=== PATIENT | female | born 1995 | race Caucasian/White ===

== ENCOUNTER 2021-11-11 09:26 | Day surgery (SDC) | payer OTHER, SELFPAY ==
[2021-11-11] VITALS (7 sets, daily range): BP systolic 112–131; BP diastolic 69–98; PULSE 60–103; RESP 16; TEMP 36.4–37.1; O2SAT 99–100; BMI 25.8
[2021-11-11] MEDS: LACTATED RINGERS 1000 ML 1,000 ML 100 ML IV (10:00)
[2021-11-11] MEDS: SODIUM CHLORIDE 0.9 % (FLUSH) 10 ML SYRINGE IVF (10:02)
[2021-11-11] MEDS: ETHYL CHLORIDE 1 APPLICATION 1 APPLIC TOPICAL (10:03)
[2021-11-11] MEDS: BUPIVACAINE 0.25% 30 ML 20 ML INJECTION (11:29)
--- NOTE | 2021-11-11 11:56 | W.ANESCHARGE ---
Anesthesia Charges Start Date/Time Anesthesia Start Date: 11/11/21 Anesthesia Start Time: 11:10 Stop Date/Time Anesthesia Stop Date: 11/11/21 Anesthesia Stop Time: 11:58 Summary Emergency: No
--- NOTE | 2021-11-11 11:59 | W.PM.GYNPROC ---
Procedure Note Date Seen: 11/11/21 Procedure Details: PREOPERATIVE DIAGNOSIS: Missed /early intrauterine demise at 8 6/7 weeks. POSTOPERATIVE DIAGNOSIS: Missed /early intrauterine demise at 8 6/7 weeks.. PROCEDURE: Suction curettage. SURGEON: Miya. ANESTHESIA: Monitored anesthesia care and paracervical block. COMPLICATIONS: None. ESTIMATED BLOOD LOSS: 15 mL. FINDINGS: Moderate amount of products of conception. PROCEDURE NOTE: After obtaining informed consent, the patient was taken to the operating room where she received monitored anesthesia care. She was prepared and draped in the normal, sterile fashion in the dorsal lithotomy position. An examination was performed under anesthesia which demonstrated a normal sized retroverted uterus. An open-sided bivalve speculum was placed into the vagina and the cervix easily visualized. The anterior lip of the cervix was grasped with a single-tooth tenaculum for traction. A paracervical block was administered using a total of 20 mL of 0.25% Marcaine, plain. A sound was gently inserted through the cervical os into the uterus to the level of the fundus. Sound length was 11 cm. The cervix was gently dilated using Hegar dilators to a #10 dilator. A 9 mm rigid, curved suction cannula was advanced through the cervical os into the uterine cavity. Gentle suction was applied, and the uterine lining gently curetted. A moderate amount of products of conception and blood was removed. The suction cannula was removed. There was additional tissue then visualized at the os that was grasped with a ring forceps and removed, to be included with the suctioned specimen. The uterine lining was gently explored using a sharp curette, and a gritty feel was felt throughout. One final pass was made with the suction cannula, no further tissue was recovered. All instruments were then removed. The patient tolerated the procedure well. Sponge, lap, and needle counts were reported as correct x2. The patient was taken to the recovery room awake and in stable condition. PATHOLOGY SPECIMEN(S): Products of conception for routine path.
--- NOTE | 2021-11-11 12:15 | W.ANESCHARGE ---
Anesthesia Charges Start Date/Time Anesthesia Start Date: 11/11/21 Anesthesia Start Time: 11:10 Stop Date/Time Anesthesia Stop Date: 11/11/21 Anesthesia Stop Time: 11:58 Summary Emergency: No
== END 2021-11-11 13:30 | disposition home or self-care (01) ==
PROVIDERS: PCP Family Medicine; Visit Provider Obstetrics & Gynecology
PROC: (CPT 59820; principal; 2021-11-11 10:45)
DX: O02.1 Missed abortion (principal); Z3A.08 8 weeks gestation of pregnancy
CPT/HCPCS: 59820; 00940; 01965; 36415; 86850; 86900; 86901; 88182; 88305; 88342; J1100; J1885; J2250; J2405; J2704; J3010; J3490; J7120

== ENCOUNTER 2021-11-24 15:57 | Outpatient (CLI) | payer OTHER, SELFPAY ==
[2021-11-25 14:36] LABS: HCG Quantitative* 21.44 mIU/mL
[2021-11-27 00:48] LABS: Anti-Nuclear Ab(ANA)IgG ELISA None Detected (None Detected)
== END 2021-11-24 15:58 | disposition home or self-care (01) ==
PROVIDERS: PCP Family Medicine; Visit Provider Obstetrics & Gynecology
DX: N96 Recurrent pregnancy loss
CPT/HCPCS: 84702; 84703; 86039

== ENCOUNTER 2022-11-06 14:52 | Outpatient (CLI) | payer OTHER, SELFPAY ==
[2022-11-06 15:03] VITALS: PULSE 95; O2SAT 99
[2022-11-06 15:04] VITALS: BP 127/89; PULSE 90
[2022-11-06 15:05] VITALS: TEMP 36.6
[2022-11-06 15:39] LABS: Appearance Urine Clear (Clear); Bilirubin Urine Negative (Negative); Blood Urine Negative (Negative); Color Urine Yellow (Yellow); Glucose Urine Negative (Negative); Ketones Urine 3+ (Negative); Leukocyte Esterase Urine Negative (Negative); Nitrite Urine Negative (Negative); Protein Urine Negative (Negative); Specific Gravity Urine <= 1.005 (1.000-1.030); Urobilinogen Urine 0.2 (0.2-1.0)
[2022-11-06 16:16] LABS: Yeast No Yeast Seen (None Seen)
[2022-11-06 16:17] LABS: Clue Cells No Clue Cells Seen (None Seen); Trichomonas No Trichomonas Seen (None Seen)
--- NOTE | 2022-11-06 16:54 | PM.OBHPAP1 ---
OB - H&P; HPI Antepartum History of Present Illness Time Seen by Provider: 16:55 Date Seen: 11/06/22 Chief complaint: Maternity Narrative: Felisa Kenney is a 27 year old female who presents with contractions at 34w2d. She is a . Patient started carson more the last few days. However, today at work she had more cramping. She called triage and was asked to come in for evaluation. On the way to [place] from [place] where she works she had painful contractions she had to breathe through. She has had urgency and frequency the last few weeks. She denies dysuria. She has had good movement. She has been hydrating well. She has no concern for headache, vision changes, RUQ pain. She has had no gushes of fluids. She works in labor and deliver and could palpate her contractions on the way here and felt pelvic pressure. OB course was complicated by gestational diabetes on insulin. She takes 10 units of NPH at bedtime. History of Present Dating criteria: based on LMP (consistent with 6 week ultrasound) care: good care Ultrasounds: normal 1st trimester US complications: gestational diabetes Medical complications: none Labs Blood type: A (-) negative Rubella: immune RPR/VDLR: nonreactive GBS status: unknown (did collect swab today) HBsAG: negative Review of Systems Status of ROS: Reports: 10 or more systems reviewed and unremarkable except as noted in History and below Meds Home Medications and Allergies Home Medications Medication Instructions Recorded Confirmed Type No Known Home Medications 03/14/22 03/14/22 History Allergies Allergy/AdvReac Type Severity Reaction Status Date / Time sulfamethoxazole Allergy Intermediate rash, hives Verified 03/14/22 09:58 trimethoprim Allergy Intermediate rash, hives Verified 03/14/22 09:58 amoxicillin Allergy Rash Verified 03/14/22 09:58 Sulfa drugs Allergy Intermediate rash, hives Uncoded 03/14/22 09:58 OB - H&P: Exam Physical Exam: Vital signs: Temp Pulse BP Pulse Ox 98 F 90 127/89 99 11/06/22 15:05 11/06/22 15:04 11/06/22 15:04 11/06/22 15:03 Constitutional: Constitutional: no acute distress Routine HEENT Exam: Head: Present atraumatic and normal inspection Routine Neck Exam: Neck: Present full ROM Detailed Neck Exam: Thyroids: Thyroid: Present normal Routine Respiratory Exam: Respiratory: Present CTA bilaterally Routine Cardiovascular Exam: Cardiovascular: RRR, S1 and S2 Routine Exam: Perineum Description: Normal Detailed Labor and Delivery Exam: Patient Gravid: Yes Dilation (cm): 1 Effacement (%): 0 Cervix position: posterior Consistency: firm Contraction frequency (min): 3 Tachysystole: No Contraction intensity: Moderate Fetus (Single): Amniotic Membrane Fluid Description: Clear Heart Rate Baseline: 125 Monitor Accelerations: Present Monitor Decelerations: None Chcf Variability: Moderate (6-25) Routine Back/Spine/Pelvis Exam: Back/Spine: full ROM Routine Neurological Exam: Present alert and oriented X3 Routine Psychiatric Exam: Present normal affect and normal thought process OB - Results Labs Labs: Urine 11/06/22 Range/Units 14:57 Urine Color Yellow (Yellow) Urine Appearance Clear (Clear) Urine pH 6.0 (5.0-8.5) Ur Specific [place] <= 1.005 (1.000-1.030) Urine Protein Negative (Negative) Urine Glucose (UA) Negative (Negative) OB - A/P Antepartum Assessment and Plan (1) labor: Status: Acute Plan Patient is a at 34 weeks who presented with contractions. Was given IV fluids, nifedipine. UA and wet prep normal. Nifedipine seemed to decrease intensity of contractions for a bit, but they picked up again. Cervix changed from 0 to 1 cm. Given we deliver at >35 weeks gestation, we elected to transfer to higher level of care. - Transfer to [place] (accepted by Dr. Seo) - GBS pending - Deferred betamethasone given gestational diabetes.
[2022-11-06] MEDS: NIFEdipine 10 MG CAPSULE PO (16:56)
[2022-11-06] MEDS: LACTATED RINGERS 1000 ML 1,000 ML IV (17:00)
[2022-11-06 17:29] VITALS: BP 115/70; PULSE 86
[2022-11-06 19:26] VITALS: BP 126/78; PULSE 86; PULSE 94; O2SAT 98
--- NOTE | 2022-11-06 21:04 | PC.OBNST ---
NST Note NST Note Start: 11/06/22 14:56 Freq: ONCE Status: Active Protocol: Document 11/06/22 19:20 PARVIZ (Rec: 11/06/22 21:04 PARVIZ [id number]) NST Note 2 Para (# of births) 1 EDC 12/16/22 Gestational Age In Weeks & Days 34 Weeks & 2 Days High Risk Factors Diabetes - Preexisting Type I Diet Controlled Patient Presented with Complaint(s) of Contractions/cramping Reactive Yes Appropriate for Gestational Age Yes LOGAN Reis RNC Date 11/06/22 Reactive Yes Appropriate for Gestational Age Yes LOGAN Chau RN Date 11/06/22 OB NST charge Yes Complete NST Note via Write Note Yes The provider's electronic signature indicates the NST is reactive/appropriate for gestational age. *Note to provider: If an addendum is required, open the patient's chart and click on the note under the Nurse/Allied Health tab.
[2022-11-07 18:56] LABS: Strep B DNA Probe NEGATIVE (Negative)
[2022-11-07 22:12] LABS: Strep B Pen/Amox Allergy No
== END 2022-11-06 19:30 | disposition home or self-care (01) ==
LOC: OB OUT 14:52 → OB 14:53
PROVIDERS: PCP Family Medicine; Visit Provider Family Medicine
DX: O24.419 Gestational diabetes mellitus in pregnancy, unspecified control (principal); Z3A.34 34 weeks gestation of pregnancy
CPT/HCPCS: 59025; 81003; 87081; 87086; 87210; 87653; 99199; 99213; A0425; A0428; A9270; J7120

== ENCOUNTER 2022-11-06 19:25 | Outpatient (CLI) | payer OTHER, SELFPAY | END 2022-11-06 19:26 | disposition home or self-care (01) | LOC: AMB 11-16 18:31 | PROVIDERS: PCP Family Medicine; Visit Provider Emergency Medicine Emergency Medical Services | DX: O47.03 False labor before 37 completed weeks of gestation, third trimester (principal); Z3A.34 34 weeks gestation of pregnancy | CPT/HCPCS: A0425; A0428 ==

== ENCOUNTER 2022-12-08 16:56 | Inpatient (IN) | payer OTHER, SELFPAY ==
[2022-12-08] VITALS (8 sets, daily range): BP systolic 116–137; BP diastolic 74–88; PULSE 65–83; TEMP 36.6–37.1; O2SAT 98–99; BMI 30.3
--- NOTE | 2022-12-08 18:16 | P.OBHP_ITS ---
OB - H&P: HPI Labor/Induction History of Present Illness Date Seen: 12/08/22 Chief Complaint: The patient is a 27 year old 3 para 0020 at 38+6 weeks gestation by LMP and confirmed with 6 week US, who presents for induction for IDGDM. Chief complaint: Maternity : 3 Para: 0 Narrative: Felisa Kenney is a 27 year old at 38+6 weeks here for cervical ripening followed by induction for IDGDM. Her has also been complicated by covid, she has been on ASA throughout . She is currently on 10 units NPH at HS and 6 units novolog with meals. Her weekly BPPs have been reassuring and EFW 3083g ( 67%) at 37 weeks. She reports some mild contractions over the last few weeks, these seem positional. No LOF. Baby has been active. History of Present Dating criteria: based on LMP care: good care Ultrasounds: normal 1st trimester US and normal mid trimester US complications: gestational diabetes (on insulin, well controlled. ) Labs Blood type: A (-) negative Rubella: immune RPR/VDLR: nonreactive GBS status: negative HBsAG: negative Review of Systems Status of ROS: Reports: 10 or more systems reviewed and unremarkable except as noted in History and below Meds Home Medications and Allergies Home Medications Medication Instructions Recorded Confirmed Type insulin NPH isoph U-100 human 100 unit subcut 12/08/22 History unit/mL (3 mL) subcutaneous pen (Novolin N FlexPen) insulin lispro 100 unit/mL subcut 12/08/22 History subcutaneous pen Allergies Allergy/AdvReac Type Severity Reaction Status Date / Time sulfamethoxazole Allergy Intermediate rash, hives Verified 03/14/22 09:58 trimethoprim Allergy Intermediate rash, hives Verified 03/14/22 09:58 amoxicillin Allergy Rash Verified 03/14/22 09:58 OB - H&P: Exam Physical Exam: Vital signs: Pulse BP 83 116/74 12/08/22 17:14 12/08/22 17:14 Constitutional: Constitutional: no acute distress Routine HEENT Exam: Head: Present atraumatic Eye: Present EOMI and PERRL ENT: Present mucous membranes moist Routine Neck Exam: Neck: Present full ROM Routine Respiratory Exam: Respiratory: Present CTA bilaterally Routine Cardiovascular Exam: Cardiovascular: RRR Comments: no murmur Detailed Labor and Delivery Exam: Patient Gravid: Yes Dilation (cm): 1 Effacement (%): 70 Cervix position: posterior Consistency: soft Cervical ripeness score: 6 Contraction frequency (min): 7 Contraction intensity: Mild Fetus (Single): Station: -2 Amniotic Membrane Status: intact Heart Rate Baseline: 125 Monitor Accelerations: Present Monitor Decelerations: None Detention Variability: Moderate (6-25) Routine Extremities Exam: Comments: no swelling or redness Routine Back/Spine/Pelvis Exam: Back/Spine: full ROM Routine Skin Exam: Present intact Routine Neurological Exam: Present alert, oriented X3 and CN II-XII intact Routine Psychiatric Exam: Present normal affect OB - Problem Based A/P Additional Plan (1) Term : Status: Acute (2) Gestational diabetes requiring insulin: Status: Acute Plan Cook catheter placed with 60 mL in both intrauterine and intravaginal balloons. Low dose pitocin after midnight NPH per usual regimen tonight. Once in active labor will transition to protocol. AROM and/or continued pitocin in AM. Anticipate Delivery/Labor/Induction Plan Induction method: Intracervical balloon catheter
[2022-12-08 19:12] LABS: Basophils Percent Auto 0.2 % (0.0-3.0); Eosinophils Percent Auto 0.3 % (0.0-7.0); Hematocrit 40.8 % (33.0-51.0); Immature Granulocytes Pct Auto 0.2 %; Lymphocytes Percent Auto 22.7 % (20-44); Mean Corpuscular HGB Conc 34 gm/dL (32-36); Mean Corpuscular Hemoglobin 32 pg (26-34); Mean Corpuscular Volume 94 fL (80-100); Monocytes Percent Auto 7.4 % (0.0-11.0); Neutrophils Percent Auto 69.2 % (42.0-72.0); Platelet Count* 199 K/uL (140-440); RDW Coefficient of Variation % 12.5 % (11.5-15.5); Red Blood Count 4.33 m/uL (4.00-5.20); White Blood Count* 11.42 K/uL (4.50-11.00)
[2022-12-08 19:15] LABS: Slide Review Reflex No
[2022-12-08] MEDS: LACTATED RINGERS 1000 ML 1,000 ML 125 ML IV (20:52)
[2022-12-08] MEDS: OXYTOCIN 30 unit/500 ML in NS 30 UNIT/500 ML BAG IVPB (20:53)
[2022-12-08] MEDS: INSULIN NPH 100 UNIT/ML 10 UNIT SUBCUT (21:39)
[2022-12-09] VITALS (46 sets, daily range): BP systolic 97–136; BP diastolic 56–83; PULSE 61–93; RESP 16–18; TEMP 36.5–37.4; O2SAT 97–100
[2022-12-09] MEDS: LACTATED RINGERS 1000 ML 1,000 ML 125 ML IV ×2 (04:18→10:07)
--- NOTE | 2022-12-09 08:19 | P.OBPN_ITS ---
Subjective Date Seen: 12/09/22 Narrative: Felisa is a at 39 weeks admitted last night for cervical ripening prior to IOL for IDGDM. She was very uncomfortable last night after cook catheter placement, but was able to eventually get a few hours of sleep. Contractions are more uncomfortable this morning, some she is having to breathe through. She underwent AROM with clear fluid. Objective Vital Signs: Last Vital Signs Temp 98.9 F 12/09/22 05:56 Pulse 70 12/09/22 05:55 BP 136/83 12/09/22 05:55 Pulse Ox 99 12/08/22 23:12 Pelvic Exam Dilation (cm): 4-5 Effacement (%): 80 Station: -2 Contractions Monitor mode: External Contraction Frequency: 2-3 Contraction pattern: Regular Contraction intensity: Moderate Assessment Assessment: active labor and induction ongoing Station: -2 Heart Rate Baseline: 135 [facility] Variability: Moderate (6-25) Monitor Accelerations: Present Monitor Decelerations: None Plan Plan: Continue pitocin. Glucose monitoring/treatment per protocol. Epidural per patient request. Anticipate .
[2022-12-09] MEDS: ROPIVACAINE 0.2 % PF 10 ML INJ 20 MG EPIDURAL (09:55)
[2022-12-09] MEDS: ROPIVACAINE 0.2% 100 ml 100 ML 12 MG EPIDURAL (09:56)
[2022-12-09] MEDS: 5 % DEXTROSE/0.9% SOD CHLORIDE 1,000 ML 125 ML IV (11:40)
--- NOTE | 2022-12-09 14:02 | W.PM.VAGDEL1 ---
Procedure Delivery date: 12/09/22 Procedure Done: Global Events: GDMA2, Labor Induction and Covid Infection in Intrapartal Events: None Delivery augmentation: rupture of membranes Delivery monitor: external FHT Route of delivery: Laceration description: Vaginal - 1st Degree Estimated blood loss (mL): 175 Anesthesia type: Epidural Disposition: floor Narrative: The patient is a 27 year-old admitted on 12/08/2022 at 39 Weeks, 6 Days gestation for cervical ripening prior to induction fr TIFFANY.? Cervical exam on admission was 1 cm/70 % effaced/-3 station with membranes intact in vertex presentation.? Contractions were rare.? heart rate demonstrated baseline 125 bpm with moderate variability, + accelerations, - decelerations; a category 1 tracing.? AROM occurred at 0805 with clear fluid. ? Labor Analgesia:? epidural ? Pitocin:? yes ? Labor onset:? 0805 ? Complete:? 1145 ? Pushing:? 1155 ? heart tones during second stage were category 1. ? At 1348 a viable female delivered in vertex OA presentation over intact perineum via spontaneous vaginal delivery.? was placed on maternal abdomen.? Cord was clamped and cut after a 30-60 second delay.? Nose and mouth were bulb suctioned.? Infant weight pending.? 8 at 1 minute and 9 at 5 minutes.? Shoulder dystocia: no.? Nuchal cord: no. ? Placenta delivered spontaneously and complete at 1351 with a 3 vessel cord. ? Mother and infant were stable after delivery. ? Lacerations:? 1st degree vaginal, not repaired. ? Blood loss: 175 mL. Blood loss measurement type: QBL ? Sponge and needles counts are correct.
--- NOTE | 2022-12-09 14:05 | PM.ANBPRC ---
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) Hidradenitis suppurativa ?L73.2 - Hidradenitis suppurativa (ICD-10) Surgical History (Updated 11/24/21 @ 16:57 by Vero Holliday MD) Status post dilation and curettage (11/11/21) ?Z98.890 - Other specified postprocedural states (ICD-10) History of breast lump/mass excision ?Z98.890 - Other specified postprocedural states (ICD-10) H/O wisdom tooth extraction ?K08.409 - Partial loss of teeth, unspecified cause, unspecified class (ICD-10) Family History (Updated 11/07/21 @ 11:00 by Vero Holliday MD) Other Breast cancer Colon cancer Lung cancer Stroke Social History (Updated 11/07/21 @ 10:59 by Vero Holliday MD) Narrative: 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 What is your current living situation?: I presently have a place to live Problems where you live: no known problems In the past 12 months, utilities in danger of being shut off: no In the past 12 mos, have been you worried that your food would run out before you had money to buy more?: never true In the past 12 mos, the food you bought just didn't last and you didn't have money to buy more?: never true Smoking Status: Never smoker How often do you have a drink containing alcohol: 2-3 times a week How many standard drinks containing alcohol do you have on a typical day: 3 or 4 How often do you have six or more drinks on one occasion: Less than monthly AUDIT-C Alcohol total score: 5 Non-prescribed substance use: denies use Caffeine: Yes (1 daily) Are you now , , , , never or living with a partner: Social isolation score (0-1 are the most socially isolated patients): 1 How often does anyone, including family, friends and others, physically hurt you: never How often does anyone, including family, friends and others, insult or talk down to you: never How often does anyone, including family, friends and others, threaten you with harm: never How often does anyone, including family, friends and others, scream or curse at you: never Meds Home Medications and Allergies Home Medications Medication Instructions Recorded Confirmed Type aspirin 81 mg tablet,delayed 81 mg PO DAILY 12/08/22 12/08/22 History release (Adult Aspirin Regimen) docosahexaenoic acid 200 mg 200 mg PO QHS 12/08/22 12/08/22 History capsule ( DHA) insulin NPH isoph U-100 human 100 10 unit subcut QHS 12/08/22 12/08/22 History unit/mL (3 mL) subcutaneous pen (Novolin N FlexPen) insulin lispro 100 unit/mL 6 unit subcut .COMPLEX 12/08/22 12/08/22 History subcutaneous pen Allergies Allergy/AdvReac Type Severity Reaction Status Date / Time sulfamethoxazole Allergy Intermediate rash, hives Verified 03/14/22 09:58 trimethoprim Allergy Intermediate rash, hives Verified 03/14/22 09:58 amoxicillin Allergy Rash Verified 03/14/22 09:58 Results Labs Labs: Laboratory Results - last 24 hr 12/08/22 19:05 WBC 11.42 H RBC 4.33 Hgb 14.0 Hct 40.8 MCV 94 MCH 32 MCHC 34 RDW Coeff of Emile 12.5 Plt Count 199 Neut % (Auto) 69.2 Lymph % (Auto) 22.7 [place] % (Auto) 7.4 Eos % (Auto) 0.3 Baso % (Auto) 0.2 Neut # (Auto) 7.90 H Lymph # (Auto) 2.60 [place] # (Auto) 0.80 Eos # (Auto) 0.00 Baso # (Auto) 0.00 Abs Immat Gran (auto) 0.00 Imm/Tot Granulo (auto) 0.2 Blood Type A Negative Antibody Screen POSITIVE Vital Signs Vital Signs: Last Vital Signs Temp 98.5 F 12/09/22 09:32 Pulse 72 12/09/22 13:54 Resp 16 12/09/22 09:32 BP 120/66 12/09/22 13:54 Pulse Ox 100 12/09/22 09:50 Weight: 75.296 kg Height: 157.48 cm Anesthesia Procedures Epidural Insertion Patient Location: OR Start Time: :40 Stop Time: :40 Start Date: 12/09/22 Stop Date: 12/09/22 Reason for Block: primary anesthetic Patient Position: sitting Performed By: Ector Barrera Preanesthetic Checklist: IV checked, risks and benefits discussed, surgical consent, monitors and equipment checked, pre-op evaluation, timeout performed and anesthesia consent Prep: chlorhexidine gluconate Monitoring: blood pressure monitoring, manager cardiac cath, continuous pulse oximetry and heart rate Approach: midline Vertebral Space: lumbar (1-5) Needle Type: Tuohy needle Injection Technique: continuous catheter (catheter) Needle gauge: 17 Needle Length (cm): 10 cm Needle Insertion Depth (cm): 4 Catheter Gauge: 19 Catheter Type: multi-orifice Catheter at skin depth (cm): 10 Test Dose Result: negative and lidocaine 1.5% with epinephrine 1 to 200,000 Events: other (L sided relief only. withdrew catheter to 8 cm at skin and bolused lidocaine 5 ml 2%. Relief bilaterally)
[2022-12-09] MEDS: IBUPROFEN 600 MG TABLET PO ×2 (18:54→23:56)
[2022-12-10 03:40] VITALS: BP 100/65; PULSE 77; RESP 18; TEMP 37.1; O2SAT 97
[2022-12-10 07:04] LABS: Hemoglobin* 13.1 gm/dL (12.0-16.0)
[2022-12-10] MEDS: IBUPROFEN 600 MG TABLET PO (07:54)
[2022-12-10] MEDS: DOCUSATE SODIUM 100 MG CAPSULE PO (07:54)
[2022-12-10 08:02] VITALS: BP 115/71; PULSE 70; RESP 18; TEMP 36.5; O2SAT 98
[2022-12-10 13:20] VITALS: BP 111/76; PULSE 70; RESP 18; TEMP 36.9; O2SAT 98
--- NOTE | 2022-12-10 15:33 | P.DS_ITS ---
DS: Providers Provider Date Seen: 12/10/22 Date of admission: 12/08/22 16:56 Primary care physician: Christine Alcantar MD Admitting Clinician: Christine Alcantar MD Attending Physician on discharge: Christine Alcantar MD Exam Const: Vital Signs, click to edit/add: Vital Signs - 24 hr 12/09/22 15:37 12/09/22 15:38 12/09/22 20:18 Temperature 98.3 F 97.8 F Pulse Rate 76 Pulse Rate [Pulse Oximeter] 68 Respiratory Rate 18 Blood Pressure 112/70 Blood Pressure [Le ft Radial Artery] 109/71 Pulse Oximetry 98 Oxygen Delivery Me thod Room Air 12/09/22 23:04 12/10/22 03:40 12/10/22 08:02 Temperature 98 F 98.7 F 97.7 F Pulse Rate Pulse Rate [Pulse Oximeter] 67 77 70 Respiratory Rate 16 18 18 Blood Pressure Blood Pressure [Le ft Radial Artery] 97/59 L 100/65 115/71 Pulse Oximetry 97 97 98 Oxygen Delivery Me thod Room Air Room Air Room Air 12/10/22 13:20 Temperature 98.4 F Pulse Rate Pulse Rate [Pulse Oximeter] 70 Respiratory Rate 18 Blood Pressure Blood Pressure [Le ft Radial Artery] 111/76 Pulse Oximetry 98 Oxygen Delivery Me thod Room Air Common normals: no apparent distress : Uterus: U/2 Lochia: scant Uterus palpation: uterus nontender Extremity: Common normals: clubbing, cyanosis or edema OB - DS: Summary Hospital Course Hospital Course: The patient is a 27 year old G 2 P 0 at 39 weeks gestation that was admitted to the Center on 12/08/22 for induction of labor secondary to GDM. She had an uncomplicated vaginal delivery. She delivered a viable female . She is breast feeding. the patient has done well. [place] Infant Gender: Female Time Spent with Patient Time attestation: Total time spent providing and/or coordinating discharge services: Discharge Plan Discharge Disposition: Home, Self-Care Date of Admission: 12/08/22 16:56 Primary Care Provider: Christine Alcantar Condition: Stable Anticipated Discharge Date/Time: 12/10/22 15:27 Discharge Medications: Continued DHA 200 mg capsule 200 mg PO QHS Discontinued insulin lispro 100 unit/mL insulin pen 6 unit subcut .COMPLEX Patient Comments: before lunch and dinner, 6 units Rx Instructions: 6 units subcutaneously before lunch and before dinner; Novolin N FlexPen 100 unit/mL (3 mL) insulin pen 10 unit subcut QHS aspirin [Adult Aspirin Regimen] 81 mg tablet,delayed release (DR/EC) 81 mg PO DAILY Discharge Orders: Discharge Order (Routine); Ordered 12/10/22 Ordered By: Tahir Smith Patient Education: Vaginal Delivery (GEN) Follow Up Appointments: Christine Alcantar MD [Primary Care Provider] - [facility]
== END 2022-12-10 16:19 | disposition home or self-care (01) | DRG 807 ==
PROVIDERS: Admitting Provider Family Medicine; PCP Family Medicine; Visit Provider Family Medicine
DX: O24.424 Gestational diabetes mellitus in childbirth, insulin controlled (principal); Z37.0 Single live birth; Z3A.38 38 weeks gestation of pregnancy; O70.0 First degree perineal laceration during delivery; Z86.16 Personal history of COVID-19
CPT/HCPCS: 01967; 36415; 59200; 85018; 85025; 86850; 86870; 86880; 86900; 86901; A9270; C1726; J2371; J2795; J7042; J7120

== ENCOUNTER 2024-10-26 21:58 | Outpatient (CLI) | payer BC, SELFPAY ==
[2024-10-26 22:15] VITALS: PULSE 84; O2SAT 99
[2024-10-26 22:16] VITALS: BP 118/69; PULSE 72
[2024-10-26 22:32] LABS: Appearance Urine Clear (Clear)
--- NOTE | 2024-10-26 23:03 | P.OBLDTN_ITS ---
OB - Triage/Final Diagnosis Visit Information Date Seen: 10/26/24 Narrative: The patient is a 29 year old 3 para 1 at 31.2 weeks gestation who presents with contractions. These have been occurring throughout , but more regular recently and started becoming more painful today. Has had frequent [place] contractions throughout . Most recently, had contractions starting Wednesday (10/24) that improved overnight. Returned Wednesday and improved with a warm showed. Returned again today and have become more intense throughout the evening. Denies increase in vaginal discharge. No vaginal bleeding or LOF. No recent intercourse. Feeling normal movement. complicated by GDMA2 on 10 units NPH HS and insulin lispro with meals. Reports blood sugars have been well controlled. Evaluation included UA which showed + ketones, + leuk esterase, and few bacteria. UCX pending. Deferred antibiotics at this time. FFN negative. Discussed reassuring finding with patient. Encouraged her to f/up with primary OB, Dr. Alcantar, as scheduled. Consider use of maternity support belt. Follow up if needed for bleeding, leaking, or worsening ctx. Evaluation Laboratory results: Laboratory Tests 10/26/24 Range/Units 22:00 Urine Color Yellow (Yellow) Urine Appearance Clear (Clear) Urine pH 6.0 (5.0-8.5) Ur Specific [place] 1.020 (1.000-1.030) Urine Protein Negative (Negative) Urine Glucose (UA) Negative (Negative) Urine Ketones 3+ A (Negative) Urine Blood Negative (Negative) Urine Nitrite Negative (Negative) Urine Bilirubin Negative (Negative) Urine Urobilinogen 0.2 (0.2-1.0) Ur Leukocyte Esterase 1+ A (Negative) Urine RBC 0-2 (0-2) Urine WBC 2-5 (0-5) Ur Squamous Epith Cells Few (None-Few) Amorphous Sediment Few A (None) Urine Bacteria Few A (None) Fibronectin Pending Vital signs: Vital Signs - 24 hr 10/26/24 22:15 10/26/24 22:16 Pulse Rate 72 Blood Pressure 118/69 Pulse Oximetry 99 Comments: Gen: alert, pleasant, talking through contractions Cervical exam: 0.5/thick/high [place]: contractions Q3-4 minutes Fetus (Single) Heart Rate Baseline: 125 [employer] Variability: Moderate (6-25) Monitor Accelerations: Present Monitor Decelerations: None Final Diagnosis (1) contractions: Status: Acute Total Time Spent Total Time Spent: 60 min
[2024-10-26 23:13] LABS: Fetal Fibronectin* Negative (Negative)
--- NOTE | 2024-10-26 23:50 | PC.OBNST ---
NST Note NST Note Start: 10/26/24 22:04 Freq: ONCE Status: Discharge Protocol: Document 10/26/24 23:42 ARON (Rec: 10/26/24 23:50 ARON Contreras) NST Note 3 Para (# of births) 1 EDC 12/26/24 Gestational Age In 31 Weeks & 2 Days Weeks & Days High Risk Factors Diabetes - Gestational Insulin Patient Presented Contractions/cramping with Complaint(s) of Reactive Yes Appropriate for Yes Gestational Age LOGAN Yen RN Date 10/26/24 Reactive Yes Appropriate for Yes Gestational Age LOGAN Husain RN Date 10/26/24 OB NST charge Yes Complete NST Note Yes via Write Note The provider's electronic signature indicates the NST is reactive/appropriate for gestational age. *Note to provider: If an addendum is required, open the patient's chart and click on the note under the Nurse/Allied Health tab.
== END 2024-10-26 23:20 | disposition home or self-care (01) ==
LOC: OB OUT 21:59 → OB 22:02
PROVIDERS: PCP Family Medicine; Visit Provider Family Medicine
DX: O47.03 False labor before 37 completed weeks of gestation, third trimester (principal); O24.419 Gestational diabetes mellitus in pregnancy, unspecified control; Z3A.31 31 weeks gestation of pregnancy
CPT/HCPCS: 59025; 81001; 81003; 84112; 87086; 99199; G0463

== ENCOUNTER 2024-12-18 17:06 | Inpatient (IN) | payer BC, SELFPAY ==
[2024-12-18] VITALS (8 sets, daily range): BP systolic 109–139; BP diastolic 60–79; PULSE 53–71; RESP 16; TEMP 36.6–36.7; BMI 29.0
--- NOTE | 2024-12-18 18:10 | PM.OBHPLI ---
OB - H&P: HPI Labor/Induction History of Present Illness Date Seen: 12/18/24 Chief Complaint: The patient is a 29 year old 3 para 1011 at 38+6 weeks gestation by LMP and c/w 9 week US, who presents for IOL for GMD A2. Chief complaint: IOL- GDMA2 : 3 Para: 1 Narrative: Felisa Kenney is a 29 year old at 38+6 weeks by LMP and confirmed with 9 week US here for IOL for GDM A2. Patient has been well controlled on 11 units NPH insulin. She has had reassuring twice weekly surveillance with BPPs and NSTs. Her last growth US at 36 weeks had EFW at 2737g (45%). She has been intermittently carson the last week or so, but none that were sustained. No LOF. Baby continues to be active. History of Present Dating criteria: based on LMP care: good care Ultrasounds: normal 1st trimester US and normal mid trimester US complications: gestational diabetes Labs Blood type: A (-) negative Rubella: nonimmune RPR/VDLR: nonreactive GBS status: negative HBsAG: negative Review of Systems Status of ROS: Reports: 6 or more systems reviewed and unremarkable except as noted in History and below Meds Home Medications and Allergies Home Medications ?Medication ?Instructions ?Recorded ?Confirmed ?Type docosahexaenoic acid 200 mg 200 mg PO QHS 12/08/22 12/08/22 History capsule ( DHA) Allergies Allergy/AdvReac Type Severity Reaction Status Date / Time sulfamethoxazole Allergy Intermediate rash, hives Verified 03/14/22 09:58 trimethoprim Allergy Intermediate rash, hives Verified 03/14/22 09:58 amoxicillin Allergy Rash Verified 03/14/22 09:58 OB - H&P: Exam Physical Exam: Vital signs: Temp Pulse Resp BP 98.0 F 71 16 109/62 12/18/24 18:08 12/18/24 18:08 12/18/24 18:08 12/18/24 18:08 Constitutional: Constitutional: no acute distress Routine HEENT Exam: Eye: Present EOMI and normal appearance ENT: Present mucous membranes moist Routine Neck Exam: Neck: Present full ROM Routine Respiratory Exam: Respiratory: Present CTA bilaterally Routine Cardiovascular Exam: Cardiovascular: RRR Detailed Labor and Delivery Exam: Patient Gravid: yes Dilation (cm): 2 Effacement (%): 70 Cervix position: posterior Consistency: medium Cervical ripeness score: 6 Fetus (Single): Station: -1 Amniotic Membrane Status: intact Heart Rate Baseline: 130 Monitor Accelerations: Present Monitor Decelerations: None Physical Security Manager Variability: Moderate (6-25) Routine Extremities Exam: Comments: no swelling in lower extremities bilaterally. Routine Skin Exam: Present intact Routine Neurological Exam: Present alert, oriented X3 and CN II-XII intact Routine Psychiatric Exam: Present normal affect and normal thought process OB - Problem Based A/P Additional Plan (1) Term : Status: Acute (2) Gestational diabetes requiring insulin: Status: Acute Plan 1. Cook catheter placed without difficulty. 60 mL of saline in both the intrauterine and intravaginal balloons. 2. 5 units NPH this evening (1/2 usual dose) and then per protocol during labor. 3. Start low dose pitocin at midnight, titrating per protocol once cook removed in AM. 4. Patient desires natural childbirth, anticipate . Delivery/Labor/Induction Plan Plan: induction Induction method: Intracervical balloon catheter
[2024-12-18] MEDS: ACETAMINOPHEN 500 MG TABLET 1000 MG PO (22:40)
--- NOTE | 2024-12-18 22:47 | W.PM.VAGDEL1 ---
Procedure Delivery date: 12/18/24 Procedure Done: Global Events: GDMA2 Intrapartal Events: Labor Induction and Precipitous Labor <3 Hrs Delivery monitor: external FHT and external uterine Route of delivery: Laceration description: None Estimated blood loss (mL): 100 Anesthesia type: None Disposition: floor Narrative: The patient is a 29 year-old admitted on 12/18/2024 at 38 Weeks, 6 Days gestation for IOL for GDM A2.? Cervical exam on admission was 2.5 cm/70 % effaced/-1 station with membranes intact in vertex presentation.? Contractions were absent. ? heart rate demonstrated baseline 125 bpm with moderate variability, + accelerations, - decelerations; a category 1 tracing.? Patient's cook catheter was placed at 1805, it fell out spontaneously at 2037. At 2134, patient began having strong, frequent contractions. Patient quickly progressed to complete and delivered by RN while provider was en route. SROM occurred during delivery at 2215 with clear fluid. ? Labor Analgesia:? none ? Pitocin:? IM post delivery ? Labor onset:? 2134 ? Complete:? 2214 ? Pushing:? 2215 ? heart tones during second stage were category 2. ? At 2216 a viable male delivered in vertex OA presentation over intact perineum via spontaneous vaginal delivery.? was placed on maternal abdomen.? Cord was clamped and cut after a 30-60 second delay.? Nose and mouth were bulb suctioned.? Infant weight pending.? 8 at 1 minute and 9 at 5 minutes.? Shoulder dystocia: no.? Nuchal cord: no , but did have a nuchal hand. ? Placenta delivered spontaneously and complete at 2227 by provider with a 3 vessel cord. ? Mother and infant were stable after delivery. ? Lacerations:? none, has a labial hematoma on the right. ? Blood loss: 100 mL. Blood loss measurement type: EBL ? Sponge and needles counts are correct. Gender: Male presentation: vertex Placental Delivery Description: Spontaneous Cord Description: 3 Vessels
[2024-12-19] VITALS (9 sets, daily range): BP systolic 103–127; BP diastolic 64–82; PULSE 57–80; RESP 16; TEMP 36.6–36.7; O2SAT 97–98
[2024-12-19] MEDS: IBUPROFEN 600 MG TABLET PO ×3 (03:04→17:06)
[2024-12-19 06:19] LABS: Hemoglobin* 12.5 gm/dL (12.0-16.0)
--- NOTE | 2024-12-19 07:45 | PM.OBPNVD1 ---
OB - PN:Subj Subjective Date Seen: 12/19/24 Narrative: Patient seen today on PP day 0. Doing well. Pain under control with ibuprofen. Ambulating. Tolerating diet. going well. Baby doing well. OB - PN: Obj Exam Physical Exam: Vital signs: Temp Pulse Resp BP Pulse Ox O2 Del Method 98 F 80 16 103/66 97 Room Air 12/18/24 21:00 12/19/24 03:01 12/19/24 03:01 12/19/24 03:01 12/19/24 03:01 12/19/24 03:01 Narrative: Gen: NAD Mood: Appropriate OB - PN: Obj Data Labs Labs: Laboratory Results - last 24 hr 12/19/24 06:05 Hgb 12.5 OB - PN: A/P Delivery Assessment and Plan (1) Term : Problem details: admitted for IOL for GDMA2, delivered at 38.6w via precipitous delivery. Cook placed around 1700, came out at 2038 and delivered at 2217. Status: Acute (2) Gestational diabetes requiring insulin: Status: Acute Plan Comments: Plan: -- Continue current cares. -- Encourage ambulation. -- Anticipate discharge to home tomorrow.
[2024-12-19] MEDS: DOCUSATE SODIUM 100 MG CAPSULE PO (09:02)
[2024-12-20 04:39] VITALS: BP 118/79; PULSE 63; RESP 16; O2SAT 98
[2024-12-20] MEDS: IBUPROFEN 600 MG TABLET PO (06:40)
[2024-12-20 07:58] VITALS: BP 115/77; PULSE 72; RESP 16; O2SAT 99
--- NOTE | 2024-12-20 08:01 | PM.OBDSVD1 ---
DS: Providers Provider Date Seen: 12/20/24 Date of admission: 12/18/24 17:06 Primary care physician: Christine Alcantar MD Admitting Clinician: Christine Alcantar MD Attending Physician on discharge: Christine Alcantar MD Date of Discharge: 12/20/24 DS: Diagnosis Discharge Diagnosis (1) Gestational diabetes requiring insulin: Status: Acute (2) Vaginal delivery: Status: Acute Exam Const: Vital Signs, click to edit/add: Vital Signs - 24 hr 12/19/24 08:40 12/19/24 12:30 12/19/24 17:08 Temperature 98.0 F 98.1 F 97.8 F Pulse Rate [Pulse Oximeter] 72 57 L 68 Respiratory Rate 16 16 16 Blood Pressure [Le ft Arm] 110/68 127/82 110/71 Pulse Oximetry 98 97 98 Oxygen Delivery Me thod Room Air Room Air Room Air 12/19/24 20:47 12/20/24 04:39 12/20/24 07:58 Temperature 97.9 F Pulse Rate [Pulse Oximeter] 61 63 72 Respiratory Rate 16 16 16 Blood Pressure [Le ft Arm] 113/74 118/79 115/77 Pulse Oximetry 97 98 99 Oxygen Delivery Me thod Room Air Room Air Room Air Documenting provider has reviewed patient's vital signs: yes Common normals: no apparent distress and oriented x3 GI: Common normals: soft to palpation and non-tender Palpation: soft : Uterus: 2/U Extremity: Common normals: normal to inspection and no pedal edema Neuro: Common normals: oriented x3 Psych: Common normals: thought process normal, cooperative and affect normal Thought process: normal thought process OB - DS: Summary Hospital Course Hospital Course: The patient is a 29 year old G 3 P 2011 at 39+6 weeks gestation that was admitted to the Center on 12/18/24 for IOL for GDM A2. She had an uncomlicated, precipitous vaginal delivery. She delivered a viable male . She is breast feeding. the patient has done well. Peripartum Data delivery method: Vaginal Laceration description: None complications: none Gender: Male Discharge Plan: Home Status at Discharge Functional status at discharge: independent ambulation Overall status at discharge: patient is progressing back to baseline Time Spent with Patient Time attestation: Total time spent providing and/or coordinating discharge services: Time spent: Less than 30 minutes Discharge Plan Discharge Disposition: Home, Self-Care Date of Admission: 12/18/24 17:06 Attending Provider on Discharge: Christine Alcantar Primary Care Provider: Zeina Decker Condition: Improved Anticipated Discharge Date/Time: 12/20/24 08:07 Discharge Medications: Continued DHA 200 mg capsule 200 mg PO QHS Discharge Orders: Discharge Order (Routine); Ordered 12/20/24 Ordered By: Christine Alcantar Patient Education: OB Vaginal/Breast Feeding Activity Level: No Restrictions Activity Detail: nothing per vagina x6 weeks Discharge Diet: Regular Follow Up Appointments: Christine Alcantar MD [Staff Physician, Family Practice] Referral Note: follow up in 6 weeks Forms: Patient Belongings, MyHealth Info Instructions
[2024-12-20] MEDS: MEASLES,MUMPS,RUBELLA VACC/PF 1 DOSE INJ 1 EACH SUBCUT (09:28)
== END 2024-12-20 09:40 | disposition home or self-care (01) | DRG 560 ==
PROVIDERS: Admitting Provider Obstetrics & Gynecology; PCP Family Medicine; Visit Provider Family Medicine
DX: O24.424 Gestational diabetes mellitus in childbirth, insulin controlled (principal); O62.3 Precipitate labor; Z3A.38 38 weeks gestation of pregnancy; Z37.0 Single live birth
CPT/HCPCS: 36415; 59200; 82962; 85018; 85025; 86592; 86850; 86900; 86901; 88307; A9270; C1726; J2590